=== PATIENT | male | born 1955 | race Caucasian/White ===

== ENCOUNTER → 2022-02-04 10:48 | Outpatient (CLI) | payer MEDICARE, SELFPAY ==
--- NOTE | ~2022-02-04 | MR_ITS ---
EXAMINATION: MR shoulder RT wo con DATE: 02/04/2022 11:29 INDICATION: Right shoulder pain. TECHNIQUE: Magnetic resonance imaging (MRI) of the right shoulder was performed without intravenous c ontrast. Sequences included axial PD-weighted FS FSE, coronal oblique PD-weighted FS FSE and T2-weigh miguelina FS FSE, and sagittal oblique T2-weighted FS FSE and T1-weighted FSE. COMPARISON: Right shoulder radiographs 12/01/2021 FINDINGS: Coracoacromial arch: The acromion undersurface is curved in morphology (type II). There is severe acromioclavicular joint osteoarthritis including inferiorly directed osteophytes. There is mild subacromial/subdeltoid bursit is. Rotator cuff: There is severe supraspinatus and infraspinatus tendinopathy, worst at the conjoined portion of the t endon. Teres minor tendon is normal. There is severe subscapularis tendinopathy with small interstiti al tear. Biceps tendon and glenoid labrum: Biceps tendon is in bicipital groove. There is mild intra-articular biceps tendinopathy. There is deg eneration of the glenoid labrum without well-defined tear. Fluid: There is no glenohumeral joint effusion. Bones/cartilage: There is shallow partial-thickness cartilage loss of the central glenoid. There is deep partial thick ness cartilage loss of humeral head superomedially. IMPRESSION: 1. Severe rotator cuff tendinopathy. Small interstitial tear of subscapularis tendon. 2. Moderate glenohumeral joint chondrosis. 3. Severe acromioclavicular joint osteoarthritis. 4. Mild intra-articular biceps tendinopathy. 5. Mild subacromial/subdeltoid bursitis. Reviewed, dictated and finalized at location A. IMPRESSION: 1. Severe rotator cuff tendinopathy. Small interstitial tear of subscapularis t endon. 2. Moderate glenohumeral joint chondrosis. 3. Severe acromioclavicular joint osteoarthritis. 4. Mild intra-articular biceps tendinopathy. 5. Mild subacromial/subdeltoid bursitis.
== END ==
PROVIDERS: Visit Provider Orthopaedic Surgery
DX: M19.011 Primary osteoarthritis, right shoulder (principal); M75.51 Bursitis of right shoulder
CPT/HCPCS: 73221

== ENCOUNTER 2022-03-30 01:00 | Day surgery (SDC) | payer MEDICARE, SELFPAY ==
[2022-03-16 13:27] VITALS: BMI 27.5
--- NOTE | 2022-03-16 13:40 | PC.NURSE ---
PRE-OP INSTRUCTIONS, PLEASE READ CAREFULLY Report to the Outpatient Waiting Room, entrance under the green pavilion located off [facility], at time _0600_ on date _03/30/22_. Planned Procedure Time: _0730_. Time changes happen often and if your time is changed the preop area will call you the afternoon before. - You and your visitor will be asked to self-screen and do not enter if you have any COVID symptoms. - Only one visitor is requested with a max of two and NO children visitors are allowed at this time. - The patient visitor may be requested to leave or wait in car when not with patient due to distancing restrictions. - A mask is optional within the hospital. Patients may have clear liquids (water, carbonated beverages, clear teas, apple juice) until 3 hours prior to surgery (0430 AM) with a maximum of 20 ounces. - No food from midnight until time of surgery Take the following medications with a SIP of water the morning of surgery: _TYLENOL IF NEEDED_ Medications to discontinue _ALEVE PER DR. JOSUE'S INSTRUCTIONS_ Medications to discontinue per ANESTHESIA - _PROBIOTIC 3 DAYS PRIOR TO SURGERY, Date to take last dose 03/26/22_ Please no make-up, nail azeri, hairspray, perfume, deodorant, or body powder the day of surgery. No jewelry (including any body piercings) or valuables the day of surgery, leave them at home. Please take a shower or bath the night before, or the morning of, surgery with an antibacterial soap. Wear comfortable, loose fitting clothing. - Jewelry must be removed prior to entering the operating room. Rings and piercings that are not removed may be cut off. - The hospital will not accept responsibility for valuables. - Please leave all valuables, including medications, at home the day of surgery. If you are going home after surgery, a licensed trolley coach driver must drive you home. - NO public transportation without another adult if you receive anesthesia. - We recommend that an adult stay with you for 24 hours following discharge. - We also recommend that you do not drive, make important decision, drink alcoholic beverages, or take any drugs that were not prescribed by your health care provider for at least 24 hours after your discharge time. Follow any additional instructions given to you from your surgeon. If you or anyone in your household have experienced Covid symptoms in the past week, please notify your surgeon or the nurse liaison at the phone number below for possible testing. Telephone instructions given to _PATIENT_and asked if any additional questions and then verbalized understanding. Patient advised to call surgeon office or pre surgery nurse liaison [phone] if any additional questions.
[2022-03-30] VITALS (8 sets, daily range): BP systolic 117–152; BP diastolic 42–87; PULSE 64–72; RESP 14–17; TEMP 36.2–36.5; O2SAT 94–98
[2022-03-30] MEDS: ACETAMINOPHEN 500 MG TABLET 1000 MG PO (08:34)
--- NOTE | 2022-03-30 09:31 | WPDANESEPPF ---
Anes - Initial Pre Proc Eval Procedure: Operation Date: 03/30/22 10:30 Proposed Procedures p Right Shoulder Acromioplasty with Distal Clavicle Excision - Erasmo Woo MD Date/Time: 03/30/22 09:31 Surgeon: Erasmo Woo MD Pre Op Diagnosis: Rt Shoulder Impingement, AC Arthritis Patient Data Age: 66 Gender: M Height: 1.88 m Weight: 100.2 kg Last Vital Signs Temp 36.2 C L 03/30/22 08:54 Pulse 68 03/30/22 08:54 Resp 16 03/30/22 08:54 BP 152/77 H 03/30/22 08:54 Pulse Ox 96 03/30/22 08:54 O2 Del Method Room Air 03/30/22 08:54 Allergies Allergy/AdvReac Type Severity Reaction Status Date / Time No Known Allergies Allergy Verified 03/30/22 08:31 Home Medications Medication Instructions Recorded Confirmed Type acetaminophen 325 mg capsule 325 mg PO Q6H PRN Pain 02/09/22 03/30/22 History (Tylenol) Lactobacil.acidophilus-Bifido.animalis 1 cap PO DAILY 03/16/22 03/30/22 History 5 billion cell sprinkle capsule (Probiotic) ezetimibe 10 mg tablet 10 mg HS 03/16/22 03/30/22 History naproxen sodium 220 mg tablet 220 mg PO BID PRN Pain 03/16/22 03/30/22 History (Aleve) omeprazole 40 mg capsule,delayed 40 mg QAM 03/16/22 03/30/22 History release Patient hx anesthesia problems: none Family hx anesthesia problems: none Results Review: All pre-operative results and documents have been reviewed as part of the pre-operative evaluation. [facility] Past Medical History Medical History Subacromial impingement of right shoulder Surgical History Surgical History History of arthroscopic surgery of shoulder right- 2002 History of elbow surgery 2013 History of foot surgery 2020 History of surgery on wrist left-2020 Family History Family History Father Diabetes mellitus Cancer Heart disease Mother Cancer Social History Social History Smoking status: Never smoker Second hand tobacco smoke exposure: No Alcohol intake: current Alcohol use details: WAS 14/WEEK, STATES NONE IN PAST 2 MONTHS Substance use: never Substance use type: does not use Living arrangements: with family Spiritual care concerns: No Anes - Eval Final PreProcedure Day of Procedure 03/30/22 09:31 Patient weight: overweight Heart: regular rate and rhythm Lungs: clear to auscultation Airway: Mallampati scale class II Neurological: alert and oriented Last oral intake: >/= 8 hours ASA classification: II Emergent: no Anesthetic plan: proceed Anesthesia type and monitoring: general LMA and standard monitoring Results Review: All pre-operative results and documents have been reviewed as part of the pre-operative evaluation. Informed Consent: The patient's anesthetic plan and its attendant risks and benefits were discussed with the patient/family/POA. Questions were solicited and answers provided to the satisfaction of the patient/family/POA.
[2022-03-30] MEDS: LACTATED RINGERS 1,000 ML 30 ML IV CONT (09:36)
--- NOTE | 2022-03-30 09:44 | WPDHPUPDATE1 ---
History and Physical Update Update Date/Time: 03/30/22 09:44 History and Physical has been reviewed, including an updated exam of the patient. There are NO changes in the patient's condition. Risks, benefits, and alternatives have been discussed and questions answered. Patient agrees to proceed with procedure.
[2022-03-30] MEDS: KETOROLAC 15 MG/ML VIAL (*BKC) IV PUSH (09:46)
[2022-03-30] MEDS: ceFAZolin 2 GM/D5W 50 ML 2 GM/50 ML BAG IVPB (10:35)
--- NOTE | 2022-03-30 10:39 | WPDANESPNB ---
Anes - Peripheral Nerve Block Date/Time: 03/30/22 10:39 I have discussed with the patient/family/POA the placement of a peripheral nerve block for post-operative pain management, including associated risks, benefits, complications, and side effects. Alternative methods of post-operative analgesia were detailed. Questions were solicited and answers provided to the satisfaction of the patient/family/POA. Time-Out: A pre-procedural Time-Out was completed immediately before starting the procedure and confirmed: Patient Identification, Site, Procedure, Patient Position and the Availability of Requisite Equipment. Clinical Indications: Acute post-operative pain management requested by the operative surgeon. Nerve Block Insertion Note Anes-nerve block: interscalene right Patient position: other (sitting) Skin prep: chlorhexidine Needle: 22 gauge, stimulating, insulated echogenic needle. Needle length: 50 mm Technique comment: mid2mg [id number] Injectate: bupivacaine 0.5% with epi 5 mcg/ml (no epi) and dexamethasone (mg) (4) Procedure start time:: 1027 Procedure end time:: 1033
[2022-03-30] MEDS: BUPIVACAINE/EPINEPHRINE 0.5% 10 ML VIAL INFILTRATE (11:06)
--- NOTE | 2022-03-30 11:36 | W.PM.PROC2 ---
Procedure Note - Detailed Date of Procedure 03/30/22 Pre-op Diagnosis Rt Shoulder Impingement, AC Arthritis Post-op Diagnosis Same Procedure Performed Right shoulder open acromioplasty with distal clavicle excision Surgeon Erasmo Woo MD [place] Michelle Jung Anesthesia General and Regional Description of Procedure Patient was identified and proper site identified. In the preop holding area the anesthesia team performed a right upper extremity block. He was then taken to the operating room and transferred to the or table taking care to pad the torso and extremities. After general anesthetic induction and intubation, he was put in a semi beach chair position in the usual manner for a right shoulder procedure. His head was secured taking care to neither rotate nor extend the head and neck. The right upper extremity was prepped and draped free in usual sterile fashion. The subcutaneous tissue in the area of the incision was injected with 10 cc of 0.25% Marcaine and epinephrine solution. An oblique anterior incision was made extending from the AC joint distally in line with the fibers of the deltoid. Subcutaneous tissue was sharply dissected down to the deltoid fascia. The deltoid was dissected off the anterior portion of the acromion in the distal end of the clavicle. A 2 cm split was made at the junction between the anterior and middle thirds of the deltoid. Using the microsagittal saw the last 8 mm of clavicle removed. The saw was also used to perform the acromioplasty and then the undersurface of the acromion was rasped smooth. There was some scarred bursa overlying the rotator cuff from the prior surgery. This was debrided. Cuff was inspected and noted to be intact. The wound was irrigated with sterile NaCl solution. The deltoid was repaired back to the acromion with 2. Ethibond suture passed through bone and the remainder of the deltoid repair carried out with 2. Vicryl. Subcutaneous tissue was reapproximated with 2- v-lock and then tissue adhesive used for the skin. Sterile dressing was applied. There were no known intraoperative complications, and perioperative antibiotics were administered. Estimated Blood Loss 20 Drains No Packing No Pathology None sent Complications No immediate complications Condition Stable Disposition PACU [facility] Billing Surgery - Charge Forward: Surgery Billing ([id number], [id number])
== END 2022-03-30 13:32 | disposition home or self-care (01) ==
PROVIDERS: Visit Provider Orthopaedic Surgery
PROC: (CPT 23420; principal; 2022-03-30 10:30)
DX: M75.41 Impingement syndrome of right shoulder (principal); M19.011 Primary osteoarthritis, right shoulder; G89.18 Other acute postprocedural pain
CPT/HCPCS: 23130; 23120; 64415; A4565; A9270; J0690; J1100; J1885; J2405; J2704; J7120

== ENCOUNTER 2024-07-20 13:21 | Outpatient (CLI) | payer MEDICARE, SELFPAY ==
--- NOTE | ~2024-07-20 | MR_ITS ---
MRI of the right shoulder Technique: Axial proton-density fat-sat images, coronal proton density fat-sat and T2 fat-sat images, and sagittal T1-weighted and T2 fat-sat images were acquired. Clinical History: Other shoulder lesion COMPARISON: 02/04/2022 Findings: Status post interval subacromial decompression., Coracoclavicular and coracohumeral ligamen ts are intact. Possible low-grade bursal surface partial thickness tearing at the distal infraspinatus tendon insert ion. Supraspinatus tendon is intact, with moderate tendinosis but no partial or full-thickness tear e vident. Subscapularis tendon is intact with moderate tendinosis. Tendon of long head of the biceps is intact. Probable mild degenerative attenuation of the anterior labrum without definite detached, discrete lab ral tear. Inferior glenohumeral ligament is intact. There is mild degenerative change of the glenohumeral joint . No significant joint effusion. There is minimal fluid in the subacromial/subdeltoid bursa. No muscl e atrophy or edema. Impression: Questionable low-grade bursal surface partial tear at the distal infraspinatus tendon. No high-grade partial or full-thickness rotator cuff tear seen. Background rotator cuff tendinosis, as above. Status post interval subacromial decompression. Mild degenerative attenuation of the anterior labrum. Minimal degenerative change of the glenohumeral joint. Probable minimal subacromial/subdeltoid bursitis. Reviewed, dictated and finalized at [facility]. Impression: Questionable low-grade bursal surface partial tear at the distal infraspinatus tendon. No high-grade partial or full-thickness rotator cuff tear seen. Backgro und rotator cuff tendinosis, as above. Status post interval subacromial decompression. Mild degenerative attenuation of the anterior labrum. Minimal degenerative change of the glenohumeral joint. Probable minimal subacromial/subdeltoid bursitis.
== END 2024-07-20 13:22 | disposition home or self-care (01) ==
LOC: MICIMG 13:23
PROVIDERS: PCP Orthopaedic Surgery; Visit Provider Orthopaedic Surgery
DX: M19.011 Primary osteoarthritis, right shoulder (principal); Z47.89 Encounter for other orthopedic aftercare; M75.81 Other shoulder lesions, right shoulder; M75.41 Impingement syndrome of right shoulder
CPT/HCPCS: 73221